=== PATIENT | female | born 1995 | race Caucasian/White ===

== ENCOUNTER 2017-04-21 15:00 | Emergency (ER) | payer OTHER ==
[~2017-04-21] VITALS: Ht 175.3 cm; Wt 79.6 kg
[~2017-04-21 15:00] MED LIST: EPP3/2 IM
[2017-04-21 15:13] VITALS: TEMP 37.1; Ht 175.3 cm; Wt 79.6 kg
[2017-04-21 15:38] VITALS: O2SAT 99
[2017-04-21] MEDS ORDERED: SERT25TA PO (15:52)
[2017-04-21] MEDS ORDERED: EPP3/2 IM (15:52)
[2017-04-21] MEDS ORDERED: MELA3TAB PO (15:52)
--- NOTE | 2017-04-21 15:57 | EMERGENCY ROOM VISIT NOTE ---
History Report prepared by Akash: Bradley Vallejo Under the Supervision of: Dr. Geoffrey Roy M.D. First contact with patient: 15:24 Chief Complaint: NEURO SYMPTOMS Stated Complaint: TINGLY LEFT ARM Nursing Triage Summary: Pt report left arm tingling "like it fell asleep", started at 0200. Mild cp. Pain around left bicep. Denies h/a, nausea. History of Present Illness The patient is a 22 year old female who presents to the Emergency Room with complaints of constant left arm numbness and weakness since 11 hours [employer]. She notes waking up in the middle of the night stating that her left arm felt like it was "asleep." She reports waking up again this morning stating that her left arm still feels the same. She has tried to exercise her arm and it has not improved. She notes minor chest pain, which worsens with exertion. She currently rates her pain a 4/10 in severity. She reported to [facility] to have labs done and her D-dimer came back positive and she was advised to go to the ED. She takes Melatonin, Minastrin, control, and Zoloft. She denies shortness of breath. Her LNMP was one week ago. She states there is no chance that she has retained a tampon. Source of History: patient Onset: 11 hours [employer]RIGATION WORK[employer] Position: arm (left) Symptom Intensity: 4/10 Quality: numbness Timing: constant Associated Symptoms: + chest pain (worsens with exertion), + numbness (left arm ), No SOB Review of Systems See HPI for pertinent positives & negatives. A total of 10 systems reviewed and were otherwise negative. 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 (2) ITP (idiopathic thrombocytopenic purpura) Family History Cancer Social History Smoking Status: Never Smoker Alcohol Use: none Drug Use: none Marital Status: single Housing Status: lives with roommate Occupation Status: [employer] student Current/Historical Medications Scheduled Control Pills ( Control Pills), 1 TAB PO DAILY Melatonin (Melatonin), 3 MG PO HS Sertraline (Zoloft), 25 MG PO DAILY Scheduled PRN Diphenhydramine Hcl (Benadryl Allergy), 25 MG PO UD PRN for ALLERGIC REACTION Epinephrine (Epipen), 0.3 MG IM UD PRN for ALLERGIC REACTION Allergies Coded Allergies: Nut Tree (Unverified Allergy, Unknown, HIVES, THROAT CLOSED UP, 03/29/15) Uncoded Allergies: WALNUTS (Allergy, Severe, ANAPHYLAXIS, 02/21/15) Physical Exam Vital Signs Date Time Temp Pulse Resp B/P (MAP) Pulse Ox O2 Delivery O2 Flow Rate FiO2 04/21/17 18:10 80 18 134/76 100 04/21/17 16:26 74 04/21/17 16:07 71 18 133/71 100 Room Air 04/21/17 15:38 99 Room Air 04/21/17 15:38 99 Room Air 04/21/17 15:13 37.1 90 18 124/74 96 Room Air Physical Exam GENERAL: Patient is a healthy-appearing well-nourished young female. HEAD: Normocephalic atraumatic EYES: Ocular movements intact pupils equal and react to light OROPHARYNX mucous membranes are moist no exudates present no erythema or edema present NECK: Supple no nuchal rigidity CHEST: Good equal expansion LUNGS: Clear and equal to auscultation CARDIAC: Normal S1 and S2 ABDOMEN: Soft nontender no guarding BACK: No CVA tenderness EXTREMITIES: No pain upon palpation normal muscle strength in all groups no clubbing cyanosis or edema NEURO: Patient is following commands and answering questions appropriately. Alert and oriented x3 Cranial Nerves 2-12 grossly intact Medical Decision & Procedures ER Provider Diagnostic Interpretation: Radiology results as stated below per my review and radiologist interpretation: CHEST ONE VIEW PORTABLE HISTORY: 22 years-old Female CHEST PAIN acute atypical chest pain COMPARISON: None available TECHNIQUE: Portable AP view of the chest FINDINGS: Cardiomediastinal and hilar silhouettes are within normal limits. There is no pneumothorax, pleural effusion, focal airspace consolidation or overt pulmonary edema. The bones of the chest are grossly intact. IMPRESSION: No acute cardiopulmonary process. The above report was generated using voice recognition software. It may contain grammatical, syntax or spelling errors. Electronically signed by: Sean Coe M.D. 04/21/2017 4:05 PM Dictated Date/Time: 04/21/2017 4:[address] ANGIOGRAPHY OF THE CHEST, PULMONARY EMBOLUS PROTOCOL CLINICAL HISTORY: Chest and left arm pain. Elevated d-dimer. COMPARISON STUDY: Chest radiograph performed earlier today. TECHNIQUE: Following IV administration of 82 mL of Optiray-320, helical axial images of the chest were obtained utilizing the pulmonary embolus protocol. Maximal intensity projections and sagittal and coronal reformats were viewed on an independent 3D workstation. IV contrast was administered without complication. A dose lowering technique was utilized adhering to the principles of ALARA. CT DOSE: 244.26 mGy.cm FINDINGS: No pulmonary emboli are identified although the segmental and subsegmental pulmonary arteries are suboptimally assessed due to respiratory motion. Size of the heart is normal. There is no pericardial effusion. There is no thoracic aortic dissection. There is prominence of the aortic root which measures 3.9 x 3.7 cm at the level of the sinuses of Valsalva. There is no consolidation to suggest pneumonia. No pneumothorax or pleural effusion is present. Bony thorax and upper abdomen are unremarkable. IMPRESSION: 1. No pulmonary emboli identified although segmental and subsegmental pulmonary arteries suboptimally assessed due to respiratory motion. 2. No acute intrathoracic findings. 3. Borderline dilatation of the aortic root which measures 3.9 x 3.7 cm at the level the sinuses of Valsalva. No thoracic aortic dissection. Electronically signed by: Cameron Estrada M.D. 04/21/2017 4:57 PM Dictated Date/Time: 04/21/2017 4:41 PM HEAD WITHOUT CONTRAST (CT) CLINICAL HISTORY: 22 years-old Female with Pt c/o left arm pain . Acute chest and left arm pain TECHNIQUE: Multiple axial CT images of the head were obtained without contrast. A dose lowering technique was utilized adhering to the principles of ALARA. CT DOSE: 537.48 mGy.cm COMPARISON: None. FINDINGS: No acute intracranial hemorrhage, midline shift, intracranial mass, hydrocephalus, territorial ischemia or abnormal extra-axial collection. Artifact obscures portions of the right temporal lobe. The calvarium is intact. The paranasal sinuses, mastoid air cells, and middle ear cavities are clear. IMPRESSION: No acute intracranial abnormality. The above report was generated using voice recognition software. It may contain grammatical, syntax or spelling errors. Electronically signed by: Sean Coe M.D. 04/21/2017 4:44 PM Dictated Date/Time: 04/21/2017 4:41 PM LEFT UPPER EXTREMITY VENOUS DOPPLER ULTRASOUND CLINICAL HISTORY: Left upper extremity pain. COMPARISON STUDY: No previous studies for comparison. FINDINGS: The left internal jugular, subclavian, axillary, brachial, basilic, radial, ulnar and cephalic veins are patent. There is no deep venous thrombus within the left upper extremity. A few benign-appearing left axillary lymph nodes were incidentally noted. IMPRESSION: No deep venous thrombus within the left upper extremity. Electronically signed by: Cameron Estrada M.D. 04/21/2017 5:15 PM Dictated Date/Time: 04/21/2017 5:12 PM Laboratory Results 04/21/17 15:30 Red Blood Count 4.30, Mean Corpuscular Volume 95.6, Mean Corpuscular Hemoglobin 32.3, Mean Corpuscular Hemoglobin Concent 33.8, Mean Platelet Volume 9.7, Neutrophils (%) (Auto) 45.6, Lymphocytes (%) (Auto) 47.1, Monocytes (%) (Auto) 5.2, Eosinophils (%) (Auto) 1.9, Basophils (%) (Auto) 0.2, Neutrophils # (Auto) 2.70, Lymphocytes # (Auto) 2.79, Monocytes # (Auto) 0.31, Eosinophils # (Auto) 0.11, Basophils # (Auto) 0.01 04/21/17 15:30 Test 04/21/17 15:30 04/21/17 16:06 White Blood Count 5.92 K/uL (4.8-10.8) Red Blood Count 4.30 M/uL (4.2-5.4) Hemoglobin 13.9 g/dL (12.0-16.0) Hematocrit 41.1 % (37-47) Mean Corpuscular Volume 95.6 fL (80-100) Mean Corpuscular Hemoglobin 32.3 pg (25-34) Mean Corpuscular Hemoglobin Concent 33.8 g/dl (32-36) Platelet Count 224 K/uL (130-400) Mean Platelet Volume 9.7 fL (7.4-10.4) Neutrophils (%) (Auto) 45.6 % Lymphocytes (%) (Auto) 47.1 % Monocytes (%) (Auto) 5.2 % Eosinophils (%) (Auto) 1.9 % Basophils (%) (Auto) 0.2 % Neutrophils # (Auto) 2.70 K/uL (1.4-6.5) Lymphocytes # (Auto) 2.79 K/uL (1.2-3.4) Monocytes # (Auto) 0.31 K/uL (0.11-0.59) Eosinophils # (Auto) 0.11 K/uL (0-0.5) Basophils # (Auto) 0.01 K/uL (0-0.2) RDW Standard Deviation 43.6 fL (36.4-46.3) RDW Coefficient of Variation 12.6 % (11.5-14.5) Immature Granulocyte % (Auto) 0.0 % Immature Granulocyte # (Auto) 0.00 K/uL (0.00-0.02) Est Creatinine Clear Calc Drug Dose 123.7 ml/min Estimated GFR () 119.4 Estimated GFR (Non- 103.0 BUN/Creatinine Ratio 14.6 (10-20) Calcium Level 8.6 mg/dl (8.5-10.1) Total Bilirubin 0.2 mg/dl (0.2-1) Direct Bilirubin mg/dl (0-0.2) Aspartate Amino Transf (AST/SGOT) U/L (15-37) Alanine Aminotransferase (ALT/SGPT) 28 U/L (12-78) Alkaline Phosphatase 72 U/L (45-117) Total Creatine Kinase U/L (26-192) Creatine Kinase MB 0.6 ng/ml (0.5-3.6) Creatine Kinase MB Ratio (0-3.0) Troponin I < 0.015 ng/ml (0-0.045) Total Protein 8.5 gm/dl (6.4-8.2) Albumin 3.9 gm/dl (3.4-5.0) Lipase 275 U/L (73-393) Bedside Hemoglobin 12.6 g/dl (12.0-16.0) Bedside Hematocrit 37 % (37-47) Bedside Sodium 142 mEq/L (135-144) Bedside Potassium 4.1 mEq/L (3.3-5.0) Bedside Chloride 105 mEq/L (101-112) Bedside Total CO2 27 mEq/l (24-31) Anion Gap 15.0 mmol/L (16-25) Bedside Blood Urea Nitrogen 15 mg/dl (7-18) Bedside Creatinine 0.7 mg/dl Bedside Glucose (other) 81 mg/dl (70-99) Bedside Ionized Calcium (Stiven) 1.17 mmol/l Labs reviewed by ED physician. ED Course 1528: Past medical records reviewed. The patient was evaluated in room C7. A complete history and physical examination was performed. 1728: I reassessed the patient at this time. She is feeling better and resting comfortably. I discussed the results and treatment plan with the patient. I answered all pertaining questions that she had. She expressed understanding and verbalized agreement. The patient will be discharged home. Medical Decision Prior records/ancillary studies reviewed. Triage Nursing notes reviewed. The patient's history was concerning for chest pain. Differential diagnosis: Etiologies such as cardiac ischemia, aortic dissection, pulmonary embolism, pneumonia, pneumothorax, musculoskeletal, infections, pericarditis, myocarditis , esophageal rupture, gastrointestinal, as well as others were entertained. This is a 22-year-old female who presents emergency department complaining of left arm pain. The pain starts midhumerus and radiates down her elbow and into her hand. The patient was sent to the emergency department via at bedtime because she had a positive d-dimer. She was also complaining of chest pain on her way to you at bedtime today. In addition the patient also is on control. Based on these findings and using shared medical decision making with both the patient as well as her mother she was sent for CAT scan of the head and chest as well as an ultrasound of the arm. As her symptoms have been going on longer than 12 hours if this were a stroke I would expect it to show up on the CAT scan of her head. She has a normal CAT scan of the head. She does have a possible dilated aortic root and she has a normal blood pressure I do not feel that this is the cause of her symptoms however I did recommend that the patient receive an echo as an outpatient with either cardiology here or at home. Based on all the above findings I feel that the patient can be safely discharged home for follow-up with [facility]. Patient and mother were in agreement with the treatment plan. Medication Reconcilliation Current Medication List: was personally reviewed by me Blood Pressure Screening Patient's blood pressure: Normal blood pressure Impression Primary Impression: Arm pain, left Scribe Attestation The scribe's documentation has been prepared under my direction and personally reviewed by me in its entirety. I confirm that the note above accurately reflects all work, treatment, procedures, and medical decision making performed by me. Departure Information Dispostion Home / Self-Care Referrals No Doctor, Assigned (PCP) Forms HOME CARE DOCUMENTATION FORM, IMPORTANT VISIT INFORMATION, WORK / SCHOOL INSTRUCTIONS Patient Instructions My [facility] Additional Instructions Follow up with DR Campos's (or front office developer at home) office for boderline dilated aortic root You have been examined and treated today on an emergency basis only. This is not a substitute for, or an effort to provide, complete comprehensive medical care. It is impossible to recognize and treat all injuries or illnesses in a single emergency department visit. It is therefore important that you follow up closely with [facility]. Call as soon as possible for an appointment. Thank you for your time and consideration. I look forward to speaking with you again soon. Please don't hesitate to call us if you have any questions.
[2017-04-21 16:06] LABS: BASO % 0.2 %; BASO ABS # 0.01 K/uL (0-0.2); COMPLETE YES; EOS % 1.9 %; HEMATOCRIT 41.1 % (37-47); LYMPH % 47.1 %; LYMPH ABS # 2.79 K/uL (1.2-3.4); MEAN CELL VOLUME 95.6 fL (80-100); MEAN CORPUSCULAR HEMOGLOBIN 32.3 pg (25-34); MEAN CORPUSCULAR HGB CONC 33.8 g/dl (32-36); MEAN PLATELET VOLUME 9.7 fL (7.4-10.4); MONO % 5.2 %; NEUT % 45.6 %; PLATELET COUNT 224 K/uL (130-400); WHITE BLOOD COUNT 5.92 K/uL (4.8-10.8)
--- NOTE | 2017-04-21 16:07 | DIAGNOSTIC IMAGING REPORT ---
CHEST ONE VIEW PORTABLE HISTORY: 22 years-old Female CHEST PAIN acute atypical chest pain COMPARISON: None available TECHNIQUE: Portable AP view of the chest FINDINGS: Cardiomediastinal and hilar silhouettes are within normal limits. There is no pneumothorax, pleural effusion, focal airspace consolidation or overt pulmonary edema. The bones of the chest are grossly intact. IMPRESSION: No acute cardiopulmonary process. The above report was generated using voice recognition software. It may contain grammatical, syntax or spelling errors. Electronically signed by: Sean Coe M.D. 04/21/2017 4:05 PM Dictated Date/Time: 04/21/2017 4:04 PM
[2017-04-21 16:18] LABS: ISTAT CREATININE 0.7 mg/dl; ISTAT HEMOGLOBIN 12.6 g/dl (12.0-16.0); ISTAT IONIZED CALCIUM 1.17 mmol/l
[2017-04-21] MEDS ORDERED: OPTIRAY 320 IV PRN (16:45)
--- NOTE | 2017-04-21 16:45 | DIAGNOSTIC IMAGING REPORT ---
HEAD WITHOUT CONTRAST (CT) CLINICAL HISTORY: 22 years-old Female with Pt c/o left arm pain . Acute chest and left arm pain TECHNIQUE: Multiple axial CT images of the head were obtained without contrast. A dose lowering technique was utilized adhering to the principles of ALARA. CT DOSE: 537.48 mGy.cm COMPARISON: None. FINDINGS: No acute intracranial hemorrhage, midline shift, intracranial mass, hydrocephalus, territorial ischemia or abnormal extra-axial collection. Artifact obscures portions of the right temporal lobe. The calvarium is intact. The paranasal sinuses, mastoid air cells, and middle ear cavities are clear. IMPRESSION: No acute intracranial abnormality. The above report was generated using voice recognition software. It may contain grammatical, syntax or spelling errors. Electronically signed by: Sean Coe M.D. 04/21/2017 4:44 PM Dictated Date/Time: 04/21/2017 4:41 PM
[2017-04-21 16:55] LABS: ALKALINE PHOSPHATASE 72 U/L (45-117); ALT/SGPT 28 U/L (12-78); BLOOD UREA NITROGEN 12 mg/dl (7-18); BUN/CREATININE RATIO 14.6 (10-20); CALCIUM 8.6 mg/dl (8.5-10.1); CARBON DIOXIDE 27 mmol/L (21-32); CHLORIDE 104 mmol/L (98-107); CREATININE 0.82 mg/dl (0.60-1.20); GLUCOSE 82 mg/dl (70-99); SODIUM 136 mmol/L (136-145)
--- NOTE | 2017-04-21 16:59 | DIAGNOSTIC IMAGING REPORT ---
CT ANGIOGRAPHY OF THE CHEST, PULMONARY EMBOLUS PROTOCOL CLINICAL HISTORY: Chest and left arm pain. Elevated d-dimer. COMPARISON STUDY: Chest radiograph performed earlier today. TECHNIQUE: Following IV administration of 82 mL of Optiray-320, helical axial images of the chest were obtained utilizing the pulmonary embolus protocol. Maximal intensity projections and sagittal and coronal reformats were viewed on an independent 3D workstation. IV contrast was administered without complication. A dose lowering technique was utilized adhering to the principles of ALARA. CT DOSE: 244.26 mGy.cm FINDINGS: No pulmonary emboli are identified although the segmental and subsegmental pulmonary arteries are suboptimally assessed due to respiratory motion. Size of the heart is normal. There is no pericardial effusion. There is no thoracic aortic dissection. There is prominence of the aortic root which measures 3.9 x 3.7 cm at the level of the sinuses of Valsalva. There is no consolidation to suggest pneumonia. No pneumothorax or pleural effusion is present. Bony thorax and upper abdomen are unremarkable. IMPRESSION: 1. No pulmonary emboli identified although segmental and subsegmental pulmonary arteries suboptimally assessed due to respiratory motion. 2. No acute intrathoracic findings. 3. Borderline dilatation of the aortic root which measures 3.9 x 3.7 cm at the level the sinuses of Valsalva. No thoracic aortic dissection. Electronically signed by: Cameron Estrada M.D. 04/21/2017 4:57 PM Dictated Date/Time: 04/21/2017 4:41 PM
--- NOTE | 2017-04-21 17:16 | DIAGNOSTIC IMAGING REPORT ---
LEFT UPPER EXTREMITY VENOUS DOPPLER ULTRASOUND CLINICAL HISTORY: Left upper extremity pain. COMPARISON STUDY: No previous studies for comparison. FINDINGS: The left internal jugular, subclavian, axillary, brachial, basilic, radial, ulnar and cephalic veins are patent. There is no deep venous thrombus within the left upper extremity. A few benign-appearing left axillary lymph nodes were incidentally noted. IMPRESSION: No deep venous thrombus within the left upper extremity. Electronically signed by: Cameron Estrada M.D. 04/21/2017 5:15 PM Dictated Date/Time: 04/21/2017 5:12 PM
[2017-04-21 18:10] VITALS: BP 134/76; PULSE 80; O2SAT 100
[2017-04-21] MEDS ORDERED: DIPH25CA65 PO (22:21)
[2017-04-21] MEDS ORDERED: BCPILLS PO (22:21)
== END 2017-04-21 18:11 | disposition home or self-care (01) ==
LOC: C.EDB 15:01 → C.EDC 18:11
DX: M79.602 Pain in left arm (principal); D69.3 Immune thrombocytopenic purpura

== ENCOUNTER → 2017-07-06 | Outpatient (CLI) | payer OTHER ==
[~2017-07-06] MED LIST changes: +BCPILLS PO; +DIPH25CA65 PO; +MELA3TAB PO; +SERT25TA PO
[2017-07-06 14:19] LABS: BASO % 0.3 %; BASO ABS # 0.01 K/uL (0-0.2); EOS % 4.6 %; EOS ABS # 0.18 K/uL (0-0.5); HEMATOCRIT 38.7 % (37-47); HEMOGLOBIN 13.1 g/dL (12.0-16.0); IG# 0.01 K/uL (0.00-0.02); LYMPH % 46.1 %; LYMPH ABS # 1.82 K/uL (1.2-3.4); MEAN CELL VOLUME 94.6 fL (80-100); MEAN CORPUSCULAR HGB CONC 33.9 g/dl (32-36); MEAN PLATELET VOLUME 9.4 fL (7.4-10.4); MONO % 7.6 %; NEUT % 41.1 %; NEUT ABS # 1.63 K/uL (1.4-6.5); PLATELET COUNT 226 K/uL (130-400); RED CELL DISTRIBUTION WIDTH CV 12.7 % (11.5-14.5); RED CELL DISTRIBUTION WIDTH SD 43.8 fL (36.4-46.3); WHITE BLOOD COUNT 3.95 K/uL (4.8-10.8)
== END | disposition home or self-care (01) ==
LOC: C.LABBC 11:11
PROVIDERS: ATTEND Psychiatry & Neurology Psychiatry
DX: F41.0 Panic disorder [episodic paroxysmal anxiety] (principal)